=== PATIENT | male | born 1985 | race Hispanic/Latino ===

== ENCOUNTER 2018-11-30 11:08 | Inpatient (IN) | payer SELFPAY ==
[~2018-11-30] VITALS: Ht 177.8 cm; Wt 83.4 kg
[2018-11-30] MEDS ORDERED: ACETAMINOPHEN EXTRA STRENGTH 500 MG TABLET ONE (11:20)
[2018-11-30] MEDS ORDERED: CEFTRIAXONE SODIUM 1 GM ONE (11:39)
[2018-11-30 11:41] LABS: BASOPHILS % (AUTO) 0.3 % (0.0-5.0); HEMATOCRIT 44.6 % (42-54); LYMPHOCYTES % (AUTO) 3.7 % (21.0-51.0); MEAN CORPUSCULAR HEMOGLOBIN 29.8 pg (27.0-33.0); MEAN CORPUSCULAR HGB CONC 34.5 g/dL (32.0-36.0); MEAN CORPUSCULAR VOLUME 86.4 fL (79-99); MONOCYTES % (AUTO) 5.3 % (3.0-13.0); NEUTROPHILS % (AUTO) 90.7 % (40.0-77.0); PLATELET COUNT (AUTO) 253 K/uL (130-400); RED BLOOD CELL COUNT(AUTO) 5.17 MIL/uL (4.50-6.20); RED CELL DISTRIBUTION WIDTH 12.7 % (11.0-15.5); WHITE BLOOD COUNT (AUTO) 25.5 K/uL (4.8-10.8)
[2018-11-30 11:47] LABS: CARBON DIOXIDE 26 mmol/L (21-32); CHLORIDE 101 mmol/L (101-111); CREATININE 1.1 mg/dL (0.5-1.5); GLOMERULAR FILTR. RATE CALC 82 mL/min (>60); GLUCOSE,RANDOM 135 mg/dL (70-105); POTASSIUM 3.5 mmol/L (3.5-5.1); SODIUM SERUM 139 mmol/L (136-145); UREA NITROGEN, BLOOD 14 mg/dL (7-18)
[2018-11-30 11:54] LABS: INR 1.09 (0.85-1.15); PARTIAL THROMBOPLASTIN TIME 28.5 SEC (26.3-35.5); PROTHROMBIN TIME 11.4 SEC (9.6-11.6)
[2018-11-30 11:58] LABS: ALANINE AMINOTRANSFERASE 29 U/L (12-78); ALBUMIN 4.4 g/dL (3.5-5.0); ASPARTATE AMINOTRANSFERASE 18 U/L (10-37); BILIRUBIN,TOTAL 1.4 mg/dL (0.2-1.0); CREATINE KINASE, TOTAL 130 U/L (21-232); MYOGLOBIN 48 ng/mL (10-92); TOTAL PROTEIN, SERUM 7.6 g/dL (6.0-8.3); TROPONIN I < 0.04 ng/mL (0.00-0.06)
[2018-11-30] MEDS ORDERED: SODIUM CHLORIDE 0.9% 1000ML 1,000 ML IV ONE (12:34)
[2018-11-30] MEDS ORDERED: ONDANSETRON HCL 4 MG/2 ML VIAL IVP PRN (14:15)
[2018-11-30 16:34] LABS: APPEARANCE,URINE Clear (CLEAR); BILIRUBIN,URINE Negative (NEGATIVE); COLOR,URINE Yellow (YELLOW); GLUCOSE, URINE (UA) Negative (NEGATIVE); KETONES,URINE Negative (NEGATIVE); LEUKOCYTE ESTERASE ,URINE Negative (NEGATIVE); NITRATE,URINE Negative (NEGATIVE); OCCULT BLOOD,URINE Negative (NEGATIVE); PH,URINE 7.5 (5.0-8.0); PROTEIN,URINE Negative (NEGATIVE); UROBILINOGEN,URINE 0.2 mg/dL (0.2-1.0)
[2018-11-30] MEDS ORDERED: HYDRALAZINE HCL 20 MG/ML VIAL IV PRN (18:15)
[2018-11-30] MEDS ORDERED: ACETAMINOPHEN 325 MG TAB ONE (18:18)
[2018-11-30] MEDS ORDERED: CLINDAMYCIN 900 MG/D5% WATER 50 ML IV ONE (18:23)
[2018-11-30] MEDS ORDERED: KETOROLAC TROMETHAMINE 15MG/ML ONE (18:23)
[2018-11-30 18:58] LABS: HEMOGLOBIN A1C 5.4 % (4.0-6.0)
[2018-11-30] MEDS ORDERED: FAMOTIDINE/PF 20 MG/2 ML VIAL IV ONE (21:00)
[2018-11-30] MEDS: FAMOTIDINE/PF 20 MG/2 ML VIAL IV SCH (21:00)
[2018-11-30 21:55] VITALS: BP 122/64
--- NOTE | 2018-11-30 22:07 | NUR ---
ADMIT PT ADMITTED TO ROOM 330, AAOX3. NO DISTRESS NOTED. NOTED SWELLING/REDNESS,WARM TO TOUCH AND SMALL SCABBING ULCERS ON LEFT ELBOW EXTENDING TO UPPER ARM AND LOWER ARM. ADMISSION CARE DONE. ADMISSION DATA BASE COMPLETED. PICTURE OF LEFT ARM TAKEN, PLACED IN CHART. MARKED REDNESS ON ARM FOR RE-EVALUATION OF EDEMA AND REDNESS. ORIENTED TO ROOM AND UNIT. IN FOR MORE CARE AND MANAGEMENT. Addendum: 11/30/18 at 2332 by FLOR BURTON RN RN Amended: Links added.
[2018-11-30] MEDS: CEFTRIAXONE SODIUM 1 GM IVP SCH (22:55)
[2018-11-30] MEDS: CLINDAMYCIN 900 MG/D5% WATER 50 ML IV SCH (22:56)
[2018-11-30 23:00] VITALS: BP 114/67
[2018-12-01 03:00] VITALS: BP 111/72
[2018-12-01] MEDS: ACETAMINOPHEN 325 MG TAB PO PRN ×2 (03:41→16:17)
--- NOTE | 2018-12-01 03:41 | NUR ---
H/A PT COMPLAINTS OF HEADACHE. [id number]=212.2. MEDICATED WITH TYLENOL PO. WILL MONITOR PT. Addendum: 12/01/18 at 0416 by FLOR BURTON RN RN Amended: Links added.
[2018-12-01] MEDS: CLINDAMYCIN 900 MG/D5% WATER 50 ML IV SCH ×3 (06:31→22:54)
--- NOTE | 2018-12-01 06:31 | NUR ---
MEDS PT AWAKENS WHEN [employer] SALES REPRESENTATIVE ENTERS ROOM. DUE IV MEDS ADMINISTERED. NO CONCERNS VERBALIZED AT THIS TIME. KEPT RESTED. ENDORSING TO AM SHIFT FOR MORE CARE AND MANAGEMENT.
[2018-12-01 08:00] VITALS: BP 107/60
[2018-12-01] MEDS: FAMOTIDINE/PF 20 MG/2 ML VIAL IV SCH ×2 (09:52→20:21)
[2018-12-01] MEDS: CEFTRIAXONE SODIUM 1 GM IVP SCH ×2 (09:52→20:21)
[2018-12-01] MEDS: ENOXAPARIN SODIUM 40 MG/0.4 ML SYRINGE SQ SCH (09:53)
[2018-12-01] MEDS: KETOROLAC TROMETHAMINE 15MG/ML IV PRN ×2 (10:06→16:16)
[2018-12-01 12:00] VITALS: BP 113/68
[2018-12-01] MEDS ORDERED: LIDOCAINE HCL-MPF 1% 2ML VIAL IVP PRN (15:00)
[2018-12-01] MEDS ORDERED: POTASSIUM CHLORIDE 10% ELIXIR 20 MEQ/15 ML UDCUP PO PRN (15:00)
[2018-12-01] MEDS ORDERED: POTASSIUM CHLORIDE 20MEQ/100ML 100 ML IV PRN (15:00)
[2018-12-01 16:00] VITALS: BP 121/67
--- NOTE | 2018-12-01 17:26 | NUR ---
DCP CM met with pt discussed dc plans. Pt is independent prior to admission, lives at home with spouse. Denies any equipments/services. Pt feels safe to go back home, still drives and works, spouse able able to assist with transportation and needs as necessary. DC plan to home once stable. Addendum: 12/01/18 at 1730 by TASH MUJICA LVN CM Amended: Links added.
[2018-12-01 19:05] VITALS: BP 120/66
[2018-12-01] MEDS ORDERED: HYDROCODONE/ACETAMINOPHEN 5/325 MG TAB PO PRN (20:00)
[2018-12-01] MEDS: POTASSIUM CHLORIDE 20 MEQ ERTAB PO PRN (20:23)
[2018-12-01 23:05] VITALS: BP 117/64
[2018-12-02 03:05] VITALS: BP 120/69
[2018-12-02 05:13] LABS: BASOPHILS % (AUTO) 0.3 % (0.0-5.0); EOSINOPHILS % (AUTO) 0.2 % (0.0-8.0); HEMATOCRIT 38.6 % (42-54); LYMPHOCYTES % (AUTO) 8.2 % (21.0-51.0); MEAN CORPUSCULAR HEMOGLOBIN 29.4 pg (27.0-33.0); MEAN CORPUSCULAR VOLUME 86.4 fL (79-99); MONOCYTES % (AUTO) 6.9 % (3.0-13.0); NEUTROPHILS % (AUTO) 84.4 % (40.0-77.0); PLATELET COUNT (AUTO) 224 K/uL (130-400); RED BLOOD CELL COUNT(AUTO) 4.47 MIL/uL (4.50-6.20); RED CELL DISTRIBUTION WIDTH 12.7 % (11.0-15.5); WHITE BLOOD COUNT (AUTO) 18.2 K/uL (4.8-10.8)
[2018-12-02 05:26] LABS: POTASSIUM 3.6 mmol/L (3.5-5.1)
[2018-12-02] MEDS: CLINDAMYCIN 900 MG/D5% WATER 50 ML IV SCH ×3 (06:22→22:58)
[2018-12-02] MEDS: HYDROCODONE/ACETAMINOPHEN 5/325 MG TAB PO PRN ×3 (06:25→20:34)
[2018-12-02 08:00] VITALS: BP 111/66
[2018-12-02] MEDS: KETOROLAC TROMETHAMINE 15MG/ML IV PRN (08:41)
[2018-12-02] MEDS: CEFTRIAXONE SODIUM 1 GM IVP SCH ×2 (08:41→20:35)
[2018-12-02] MEDS: FAMOTIDINE/PF 20 MG/2 ML VIAL IV SCH ×2 (08:42→20:35)
[2018-12-02] MEDS: ENOXAPARIN SODIUM 40 MG/0.4 ML SYRINGE SQ SCH (08:42)
[2018-12-02 12:00] VITALS: BP 108/77
[2018-12-02 20:00] VITALS: BP 142/80
[2018-12-03] VITALS: BP 124/73
[2018-12-03 04:00] VITALS: BP 126/76
[2018-12-03 04:45] LABS: BASOPHILS % (AUTO) 0.2 % (0.0-5.0); EOSINOPHILS % (AUTO) 0.8 % (0.0-8.0); HEMATOCRIT 36.3 % (42-54); MEAN CORPUSCULAR HEMOGLOBIN 29.7 pg (27.0-33.0); MEAN CORPUSCULAR HGB CONC 34.3 g/dL (32.0-36.0); MEAN CORPUSCULAR VOLUME 86.6 fL (79-99); MONOCYTES % (AUTO) 9.7 % (3.0-13.0); NEUTROPHILS % (AUTO) 77.3 % (40.0-77.0); PLATELET COUNT (AUTO) 263 K/uL (130-400); RED BLOOD CELL COUNT(AUTO) 4.19 MIL/uL (4.50-6.20); RED CELL DISTRIBUTION WIDTH 12.6 % (11.0-15.5); WHITE BLOOD COUNT (AUTO) 13.8 K/uL (4.8-10.8)
[2018-12-03 04:53] LABS: POTASSIUM 3.6 mmol/L (3.5-5.1)
[2018-12-03] MEDS: CLINDAMYCIN 900 MG/D5% WATER 50 ML IV SCH ×2 (05:26→14:09)
[2018-12-03] MEDS: HYDROCODONE/ACETAMINOPHEN 5/325 MG TAB PO PRN ×2 (05:35→12:06)
[2018-12-03 07:42] VITALS: BP 118/72
[2018-12-03] MEDS: CEFTRIAXONE SODIUM 1 GM IVP SCH (08:17)
[2018-12-03] MEDS: FAMOTIDINE/PF 20 MG/2 ML VIAL IV SCH (08:17)
[2018-12-03] MEDS: KETOROLAC TROMETHAMINE 15MG/ML IV PRN (08:18)
[2018-12-03] MEDS: POTASSIUM CHLORIDE 20 MEQ ERTAB PO PRN ×2 (08:18→14:09)
[2018-12-03] MEDS: ENOXAPARIN SODIUM 40 MG/0.4 ML SYRINGE SQ SCH (08:19)
[2018-12-03] MEDS ORDERED: CLIN300C9 PO (10:46)
[2018-12-03 12:00] VITALS: BP 153/88
== END 2018-12-03 15:44 | disposition home or self-care (01) | DRG 872 ==
LOC: EDH 11:08 → EDHIP 11:09 → 3AH 21:45
PROVIDERS: ADMIT Internal Medicine; ATTEND Internal Medicine
DX: A41.9 Sepsis, unspecified organism (principal); L03.114 Cellulitis of left upper limb; E87.6 Hypokalemia; M70.32 Other bursitis of elbow, left elbow
CPT/HCPCS: 36415; 71045; 73080; 73200; 76882; 80048; 80053; 81003; 82550; 83036; 83605; 83874; 84484; 85025; 85610; 85730; 87040; 87088; 93005; G0378; J0696; J1650; J1885; J3490; J7030